=== PATIENT | female | born 1960 | race Caucasian/White ===

== ENCOUNTER 2017-06-03 08:01 | Day surgery (SDC) | payer BC ==
[2017-05-31 08:55] VITALS: BMI 28.3
[2017-06-03] MEDS ORDERED: Lidocaine/Epinephrine 1% 1:100000 10 ML IJ ONE (08:15)
[2017-06-03] MEDS ORDERED: Bupivacaine 0.25% Inj(30mL) ONE (08:15)
[2017-06-03] MEDS ORDERED: Midazolam 2 MG/2 ML VIAL ONE (09:05)
[2017-06-03] MEDS ORDERED: ceFAZolin 1 gm in NS 2 GM/200 ML BAG IVPB ONE (09:05)
[2017-06-03] MEDS ORDERED: Propofol 10 mg/ml Inj (20 ML) ONE (09:06)
[2017-06-03] MEDS ORDERED: Oxycodone/Acetaminophen 5/325 mg Tab PO PRN (10:37)
--- NOTE | 2017-06-03 10:37 | PCM.SURG1 ---
Surgeon's Initial Post Op Note - Surgeon's Notes Surgeon: Dr. Fuller [employer] Architect: Reshma Ram; Eneida Farias, PGY2; Vladimir Hernandez, OMS3 Type of Anesthesia: IV Sedation Pre-Operative Diagnosis: upper back lipoma Operative Findings: left upper back lipoma integrated down into superficial back musculature approximately 5cm in largest diameter, see full operative report Post-Operative Diagnosis: same Operation Performed: excision of left upper back lipoma and with complex incision closure Specimen/Specimens Removed: lipoma Estimated Blood Loss: EBL {In ML}: 20 Date of Surgery/Procedure: 06/03/17 Time of Surgery/Procedure: 09:30
[2017-06-03 10:50] VITALS: O2SAT 100
[2017-06-03 11:52] VITALS: BP 147/70; PULSE 70; RESP 18; TEMP 98
--- NOTE | 2017-06-05 07:27 | OP ---
PROCEDURE DATE: 06/03/2017 PREOPERATIVE DIAGNOSIS: Lipoma of the left upper back. POSTOPERATIVE DIAGNOSIS: Lipoma of the left upper back. PROCEDURE DONE: 1. Excision of lipoma of the left upper back 6 x 4 cm in size. 2. Layered complex closure of lipoma of left upper back 6 x 4 cm in size. SURGEON: Andrew Fuller MD ACCOUNTANT CERTIFIED PUBLIC: Eneida Powers, PGY-2 Resident. TYPE OF ANESTHESIA: Local anesthesia plus sedation. ESTIMATED BLOOD LOSS: Around 20 mL. DRAINS: None. PATHOLOGY: The large lipoma of the back was sent for pathology. COMPLICATIONS: None. INTRAOPERATIVE FINDINGS: The patient had a large lipoma of the left upper back approximately 4 x 6 cm in size. DESCRIPTION OF PROCEDURE: On intraoperative steps, this is a 56-year-old female who was diagnosed with a lipoma of the left upper back and the patient was consented for excision of lipoma of the back, brought to the OR, placed in the right lateral position. The left upper back was prepped and draped in usual sterile fashion. The elliptical 6-cm incision was made after incising the skin, subcutaneous tissue, and the fascia. Upper and lower flaps were created. The large lipoma was identified and the medial lateral dissection was done and the lipoma was completely excised from the underlying fascia and it was sent off the table for pathology. Hemostasis was achieved. Now the upper flap was sutured to the underlying fascia, lower flap was sutured to the underlying fascia. Another layer of deep subcutaneous with 2-0 Vicryl and superficial layer of subcutaneous with 3-0 Vicryl, skin with 4-0 Monocryl, and the skin also with a 4-0 nylon interrupted suture and dry sterile dressing was applied. The patient tolerated the procedure well. Count of the instrument and gauze was correct. There was no apparent complication. The patient was reversed from anesthesia, sent to the postanesthesia care unit in stable condition. Andrew Fuller MD
== END 2017-06-03 12:03 | disposition home or self-care (01) ==
LOC: C.SDS 08:01
PROVIDERS: ATTEND Surgery Surgical Critical Care
DX: D17.1 Benign lipomatous neoplasm of skin and subcutaneous tissue of trunk (principal)
CPT/HCPCS: 21931; 88304; J0690; J1885; J2001; J2250; J2704; J3010